=== PATIENT | male | born 1965 | race African-American/Black ===

== ENCOUNTER 2016-11-13 19:53 | Emergency (ER) | payer SELFPAY ==
[~2016-11-13] VITALS: Ht 180.3 cm; Wt 80.4 kg
[2016-11-13 19:53] VITALS: BP 130/85
[~2016-11-13 19:53] MED LIST: ALBU18HF IH; AMLO10TA4 PO; AMOX1TAB11 PO; AMOX1TAB61 PO; BISA-42 PO; CLON1TAB PO; ESOM20CA PO; FLUO20CA16 PO; FLUT12AE IH; HYDR-2666 PO; HYDR-971 PO; HYOS0.1264 PO; LISI40TA PO; MECL25TA3 PO; MEGE400O PO; NAPR500T3 PO; PANT20TA2 PO; PRED20TA PO; TAMS0.4C97 PO; TRAM50TA PO
--- NOTE | 2016-11-13 20:38 | PHYS DOC ---
General Chief Complaint: URINE CATHETER PROBLEM Stated Complaint: CATHETER REMOVAL Time Seen by MD: 19:59 Source: patient, old records Exam Limitations: no limitations Problems: History of Present Illness Initial Comments Pt is 51/M here requesting viera d/c. Pt states he has h/o urinary retention for which he takes flomax. Ran out of flomax recently due to healthcare access issues reportedly, and urinary retention recurred. Pt says he was seen at [facility] a few weeks ago and got med refills and viera placed. States he's been on meds and needs viera removed as he feels retention has resolved. Denies new or changing sx, specifically no urinary discoloration/odor/pain/fever /chills/n/v/abdominal pain/low back pain. ED records obtained/reviewed from [facility]. [facility] records support pt HPI. Pt there 11/12 with urinary retention, had been out of flomax. D/C instructions state viera to be removed after pt on flomax 1-2 days, pt reports he is. Timing/Duration: week Severity/Quality: mild, fullness Location: suprapubic Radiation: none Activities at Onset: other Prior Genitourinary Problems: similar symptoms Modifying Factors: worse with coughing, worse with exercise, worse with movement, improves with urinating Associated Symptoms: denies symptoms (sx resolved with viera last week, pt asymptomatic in ED) Allergies: Coded Allergies: sulfamethoxazole (Unverified Allergy, Intermediate, Rash, 10/08/15) trimethoprim (Unverified Allergy, Intermediate, Rash, 08/09/15) Past Medical History Medical History: other (HIV, COPD, Hepatitis A and B, anemia, depression, HTN, kidney stones, prostatitis, chronic kidney disease, STD) Surgical History: noncontributory (tonsillectomy) Social History Smoker: cigarettes Alcohol: occasionally Drugs: marijuana Review of Systems Constitutional: denies diaphoresis, denies fever Respiratory: denies cough, denies shortness of breath Cardiovascular: denies chest pain, denies syncope Gastrointestinal: denies abdominal pain, denies diarrhea, denies nausea, denies vomiting Genitourinary: see HPIdenies flank pain, denies hematuria Musculoskeletal: denies joint swelling, denies neck pain Psychiatric/Neurological: see HPIdenies paresthesia, denies seizure Physical Exam General Appearance: no apparent distress HEENT: normal ENT inspection Neck: non-tender, supple Cardiovascular/Respiratory: normal peripheral pulses, no respiratory distress Gastrointestinal: non tender, soft Rectal: deferred Male Genitals: other (deferred) Back: normal inspection, no CVA tenderness Extremities: non-tender, normal inspection 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 No other c/o, continue current meds and d/c tobacco/marijuana. Return if needed, f/u your doctor next week. Pt expressed agreement/understanding with treatment plan. Departure Time of Disposition: 20:36 Disposition: 01 HOME, SELF-CARE Diagnosis: urinary retention Condition: STABLE Patient Instructions: Urinary Retention, Acute, Male, [place] Additional Instructions: Continue flomax and your other medications. Contact your doctor in advance to arrange refills to try to avoid running out of meds moving forward. Follow up with your doctor as needed. Return to ED with new or changing symptoms. LI MIDDLETON DO Nov 13, 2016 20:38
== END 2016-11-13 20:30 | disposition home or self-care (01) ==
LOC: ER 19:53
DX: R33.9 Retention of urine, unspecified (principal); I12.9 Hypertensive chronic kidney disease with stage 1 through stage 4 chronic kidney disease, or unspecified chronic kidney disease; N18.9 Chronic kidney disease, unspecified; J44.9 Chronic obstructive pulmonary disease, unspecified; F17.210 Nicotine dependence, cigarettes, uncomplicated; F12.10 Cannabis abuse, uncomplicated; Z46.6 Encounter for fitting and adjustment of urinary device; Z87.442 Personal history of urinary calculi; Z21 Asymptomatic human immunodeficiency virus [HIV] infection status; Z88.1 Allergy status to other antibiotic agents
CPT/HCPCS: 99281

== ENCOUNTER 2016-11-15 10:52 | Emergency (ER) | payer SELFPAY ==
[~2016-11-15] VITALS: Ht 180.3 cm; Wt 80.4 kg
[2016-11-15 10:55] VITALS: BP 141/89
[2016-11-15] MEDS ORDERED: ONDANSETRON ODT 4 MG TAB.RAPDIS PO ONE (11:30)
[2016-11-15] MEDS ORDERED: LORAZEPAM 2 MG/ML VIAL IV ONE (11:30)
[2016-11-15] MEDS ORDERED: FAMOTIDINE 20 MG/2 ML VIAL IVP ONE (11:30)
--- NOTE | 2016-11-15 11:44 | EKG ---
[address] [address] Test Date: 2016-11-15 Test Time: 11:28:01 Pat Name: BRITTA BROWN Department: Room: Gender: M Technology Risk Intern: GWEN : 1965 Requested By: VINICIO CORRIGAN Order Number: [id number] Reading MD: Measurements Intervals [place] Rate: 63 P: 54 HI: 150 QRS: 37 QRSD: 98 T: 44 QT: 420 QTc: 433 Interpretive Statements SINUS RHYTHM NO SPECIFIC ECG ABNORMALITIES RI6.01 Unconfirmed report Compared to ECG 07/29/2016 02:26:31 No significant changes
--- NOTE | 2016-11-15 12:26 | ED.ADGEN ---
Past History Past Medical History: Anemia, Bronchitis, COPD, Depression, HIV, Hypertension, Hepatitis, Kidney Stones, Prostatitis, Renal Disease, STD Past Surgical History: Tonsillectomy Smoking: Cigarettes Alcohol Use: None Drug Use: Marijuana Adult General Chief Complaint Chief Complaint Dizziness HPI HPI Patient is a 51-year-old Afro-[place] male well-known to this facility presents with dizziness, described as vertigo upon standing with nausea. Patient denies loss of balance or falling. Patient has chronic intermittent vertigo for which she takes meclizine. Patient took 1 meclizine prior to ED arrival with partial improvement of symptoms. Denies vomiting, headache blurred vision, focal extremity weakness or loss of sensation. Patient also reports mild dyspepsia and chronic joint and shoulder pain. No other acute symptoms or complaints. Review of Systems Review of Systems Review symptoms as per history of present illness. All other review of symptom are negative. Current Medications Current Medications Current Medications Medications (Trade) Dose Ordered Sig/Raymond Start Time Stop Time Status Last Admin Dose Admin Acetaminophen (Tylenol) 1,000 mg 1X ONCE 11/15/16 12:40 11/15/16 12:41 Famotidine (Pepcid) 20 mg 1X ONCE 11/15/16 11:30 11/15/16 11:31 DC 11/15/16 11:39 20 MG Lorazepam (Ativan) 0.5 mg 1X ONCE 11/15/16 11:30 11/15/16 11:31 DC 11/15/16 11:37 0.5 MG Ondansetron HCl (Zofran Odt) 4 mg 1X ONCE 11/15/16 11:30 11/15/16 11:31 DC 11/15/16 11:40 4 MG Allergies Allergies Allergies Coded Allergies Type Severity Reaction Last Updated Verified sulfamethoxazole Allergy Intermediate Rash 10/08/15 No trimethoprim Allergy Intermediate Rash 08/09/15 No Physical Exam Physical Exam Constitutional: Well developed, well nourished, no acute distress, anxious. HENT: Normocephalic, atraumatic, bilateral external ears normal, oropharynx moist, no oral exudates, nose normal. Eyes: PERRLA, no nystagmus. Neck: Normal range of motion. Cardiovascular:Heart rate regular rhythm, no murmur. Lungs & Thorax: Bilateral breath sounds clear to auscultation. Abdomen: Bowel sounds normal, soft, no tenderness. Skin: Warm, dry, no erythema, no rash. Back: No tenderness, no CVA tenderness. Extremities: No tenderness. Neurologic: Alert and oriented X 3, nerves II through XII grossly intact, no focal extremity weakness or loss of sensation. Psychologic: Affect, anxious. EKG EKG [EKG: Normal sinus rhythm, no acute ST-T wave changes.] Radiology/Procedures Radiology/Procedures ] Impressions: [1. Vertigo 2. Nausea 3. Dyspepsia Course & Med Decision Making Course & Med Decision Making Pertinent Labs and Imaging studies reviewed. (See chart for details) [Symptoms improved with treatment. Patient with multiple chronic medical problems. Will defer further management to patient's PCP.] Final Impression Final Impression [1. Vertigo 2. Nausea 3. Dyspepsia] Problems: Dragon Disclaimer Dragon Disclaimer This electronic medical record was generated, in whole or in part, using a voice recognition dictation system. VINICIO CORRIGAN DO Nov 15, 2016 12:26
[2016-11-15] MEDS ORDERED: ACETAMINOPHEN 500 MG TABLET PO ONE (12:40)
== END 2016-11-15 12:28 | disposition home or self-care (01) ==
LOC: ER 10:52
DX: R42 Dizziness and giddiness (principal); R11.0 Nausea; R10.13 Epigastric pain; J44.9 Chronic obstructive pulmonary disease, unspecified; I10 Essential (primary) hypertension; F17.210 Nicotine dependence, cigarettes, uncomplicated; F12.10 Cannabis abuse, uncomplicated; Z86.2 Personal history of diseases of the blood and blood-forming organs and certain disorders involving the immune mechanism; Z87.442 Personal history of urinary calculi; Z88.1 Allergy status to other antibiotic agents
CPT/HCPCS: 93005; 96374; 96375; 99284; J2060; Q0162; S0028

== ENCOUNTER 2016-12-28 17:13 | Emergency (ER) | payer SELFPAY ==
[~2016-12-28] VITALS: Ht 180.3 cm; Wt 80.4 kg
[2016-12-28] MEDS ORDERED: IV NORMAL SALINE 1,000ML 1,000 ML IV SCH (18:08)
--- NOTE | 2016-12-28 18:13 | PHYS DOC ---
General Chief Complaint: HYPERTENSION Stated Complaint: HIGH BLOOD PRESSURE Time Seen by MD: 18:03 Source: patient Exam Limitations: no limitations Problems: History of Present Illness Initial Comments Pt is 51/M with HIV and extensive history known to the department c/o "high blood pressure." Pt states he's been out of medications for weeks "I can't get an appointment scheduled with Dr Elizondo" and fears his blood pressure may be out of control. He states he's been intermittently dizzy when standing past few days, no CP/sob/ BARBOZA/focal weakness/fever/night sweats/cough. States he needs prozac/flomax refills. Denies substance abuse. Timing/Duration: other Severity: moderate Modifying Factors: improves with medication, worse with movement Associated Symptoms: weakness, other Allergies: Coded Allergies: sulfamethoxazole (Unverified Allergy, Intermediate, Rash, 10/08/15) trimethoprim (Unverified Allergy, Intermediate, Rash, 08/09/15) Past Medical History Medical History: asthma, COPD, hepatitis (A and B), lung disease, other (anemia , bronchitis, depression, HIV, HTN, kidney stones, prostatitis, renal insufficiency, STI, urinary retention) Surgical History: tonsillectomy, other Social History Smoker: cigarettes Alcohol: occasionally Drugs: cocaine, marijuana Review of Systems Constitutional: denies chills, denies fever, malaise EENTM: denies eye pain, denies ear pain, denies ear discharge, denies throat pain, denies throat swelling, denies mouth swelling Respiratory: denies cough, denies shortness of breath, denies wheezing Cardiovascular: denies chest pain, denies palpitations, denies syncope Gastrointestinal: denies abdominal pain, denies diarrhea, denies nausea, denies vomiting Genitourinary: denies dysuria, denies frequency, denies hematuria Musculoskeletal: denies back pain, denies joint swelling, denies neck pain Psychiatric/Neurological: denies headache, denies numbness, denies paresthesia Physical Exam General Appearance: no apparent distress, thin Eyes: bilateral eye EOMI, bilateral eye PERRL, bilateral eye other (marked conjunctival injection) Ear, Nose, Throat: hearing grossly normal, normal ENT inspection Neck: non-tender, supple Respiratory: normal breath sounds, no respiratory distress Cardiovascular: normal peripheral pulses, regular rate, rhythm Gastrointestinal: non tender, soft Back: no CVA tenderness, no vertebral tenderness Extremities: non-tender, normal inspection Neurologic/Psychiatric: cook 3 pastry II-XII nml as tested, no motor/sensory deficits, alert, normal mood/affect, oriented x 3 Skin: normal color, warm/dry Orders, Labs, Meds Chest AP: no acute cardiopulmonary process K+ 3.3 (40meq PO given), CK 417, Urine Drug Screen positive for methamphetamine , cannabinoids I discussed tx plan, pt advised to d/c illicit substance abuse. Pt understands he must obtain refills from PCP in the future. Departure Time of Disposition: 20:58 Disposition: 01 HOME, SELF-CARE Diagnosis: hypokalemia, methamphetamine/THC abuse, elev CK, r Condition: STABLE Patient Instructions: Hypokalemia-Brief, Marijuana Abuse and Chemical Dependency, Medication Refill, Emergency Department, Methamphetamine Abuse, Complications, Smokeless Tobacco Use Additional Instructions: Call and give your doctor plenty of notice for refills so you do not run out. Aggressive hydration with gatorade, water. Eat one banana twice daily until doctor follow up. Discontinue methamphetamine, marijuana, and tobacco abuse. Seek medical assistance if necessary. Rx: flomax, prozac, KCL Follow up with your doctor in 2 days for recheck of symptoms, labs, and further medication refills. Return to ED with new or changing symptoms. LI MIDDLETON DO Dec 28, 2016 18:13
[2016-12-28] MEDS ORDERED: IPRATRPIUM/ALBUTEROL 0.5/2.5MG 3 ML NEBU. NEB ONE ×2 (18:15→19:45)
[2016-12-28 19:07] LABS: BASO # 0.1 x10^3/uL (0.0-0.2); BASO % 2 % (0-3); EOS % 1 % (0-3); HEMATOCRIT 40.2 % (39.0-53.0); HEMOGLOBIN 13.1 g/dL (13.0-17.5); LYMPH # 2.1 x10^3/uL (1.0-4.8); LYMPH % 42 % (24-48); MEAN CORPUSCULAR HEMOGLOBIN 27 pg (25-35); MEAN CORPUSCULAR HGB CONC 33 g/dL (31-37); MEAN CORPUSCULAR VOLUME 83 fL (79-100); MONO # 0.6 x10^3/uL (0.0-1.1); MONO % 12 % (0-9); NEUT # 2.1 x10^3uL (1.8-7.7); NEUT % 44 % (31-73); PLATELET COUNT 255 x10^3/uL (140-400); RED BLOOD COUNT 4.88 x10^6/uL (4.30-5.70); RED CELL DISTRIBUTION WIDTH 17.2 % (11.5-14.5); WHITE BLOOD COUNT 4.9 x10^3/uL (4.0-11.0)
[2016-12-28 19:22] LABS: ALBUMIN 3.7 g/dL (3.4-5.0); ALBUMIN/GLOBULIN RATIO 0.8 (1.0-1.7); CALCIUM 8.8 mg/dL (8.5-10.1); CREATININE 1.3 mg/dL (0.7-1.3); GFR 70.1; POTASSIUM 3.3 mmol/L (3.5-5.1); TOTAL BILIRUBIN 0.4 mg/dL (0.2-1.0); TOTAL PROTEIN 8.4 g/dL (6.4-8.2)
[2016-12-28 19:30] LABS: BACTERIA,URINE 0 /HPF (0-FEW); BILIRUBIN,URINE NEG (NEG); CLARITY,URINE CLEAR; COLOR,URINE AMBER; GLUCOSE,URINE NEG (NEG); NITRITE,URINE NEG (NEG); RBC,URINE OCC /HPF (0-2); SQUAMOUS EPITHELIAL CELL,UR OCC /LPF; UROBILINOGEN,URINE 0.2 mg/dL (0.2 mg/dL)
[2016-12-28 19:31] LABS: HYALINE CASTS, URINE OCC /HPF
[2016-12-28] MEDS ORDERED: methylPREDNISolone SOD SUCC PF 125 MG/2 ML VIAL. IV ONE (19:45)
[2016-12-28 19:57] VITALS: BP 148/79
[2016-12-28] MEDS ORDERED: POTASSIUM CHLORIDE 20 MEQ TABLET.ER. PO ONE (20:30)
[2016-12-28] MEDS ORDERED: ACETAMINOPHEN 325 MG TABLET PO ONE (20:30)
[2016-12-28 20:41] LABS: BARBITURATES NEG (NEG); BENZODIAZEPINES NEG (NEG); CANNABINOIDS POS (NEG); COCAINE NEG (NEG); METHADONE NEG (NEG); OPIATES NEG (NEG); PHENCYCLIDINE NEG (NEG)
[2016-12-28 20:45] LABS: AMPHETAMINE/METHAMPHETAMINE POS (NEG)
[2016-12-28] MEDS ORDERED: TAMS0.4C97 PO (21:04)
[2016-12-28] MEDS ORDERED: POTA10TA10 PO (21:04)
[2016-12-28] MEDS ORDERED: FLUO20CA16 PO (21:04)
--- NOTE | 2016-12-28 23:33 | EKG ---
[address] [address] Test Date: 2016-12-28 Test Time: 17:40:36 Pat Name: BRITTA BROWN Department: Room: Gender: M Clinical Care Leader: GWEN : 1965 Requested By: LI MIDDLETON Order Number: [id number] Reading MD: Jordan Fatima Measurements Intervals [place] Rate: 78 P: 56 CA: 156 QRS: 38 QRSD: 100 T: 50 QT: 416 QTc: 478 Interpretive Statements SINUS RHYTHM PROLONGED QT Electronically Signed On 12-31-2016 10:01:10 CDT by Jordan Fatima
--- NOTE | 2016-12-29 09:02 | RAD ---
Portable chest, 12/28/2016: History: Dizziness, hypertension Comparison is made to a study from 07/29/2016. The heart size and pulmonary vascularity are normal. There is a peripheral density laterally in the right mid chest, also evident on the previous study. This mass has been present on previous studies including the CT study from 08/09/2015 and has shown no definite change. No acute infiltrate is seen. There is no evidence of pleural fluid or pneumothorax. IMPRESSION: 1. Stable right pleural-based mass. 2. No acute cardiopulmonary abnormality is detected.
== END 2016-12-28 21:07 | disposition home or self-care (01) ==
LOC: ER 17:13
DX: E87.6 Hypokalemia (principal); F15.10 Other stimulant abuse, uncomplicated; F19.10 Other psychoactive substance abuse, uncomplicated; R74.8 Abnormal levels of other serum enzymes; R42 Dizziness and giddiness; F17.210 Nicotine dependence, cigarettes, uncomplicated; I10 Essential (primary) hypertension; F12.10 Cannabis abuse, uncomplicated; F14.10 Cocaine abuse, uncomplicated; N28.9 Disorder of kidney and ureter, unspecified; J44.9 Chronic obstructive pulmonary disease, unspecified; F32.9 Major depressive disorder, single episode, unspecified; J45.909 Unspecified asthma, uncomplicated; Z87.442 Personal history of urinary calculi; Z86.2 Personal history of diseases of the blood and blood-forming organs and certain disorders involving the immune mechanism; Z88.1 Allergy status to other antibiotic agents
CPT/HCPCS: 36415; 71010; 80053; 80305; 81001; 82550; 84484; 85027; 93005; 94640; 96361; 96374; 99285; J2930; J7620; 80320; G0480; G0481; J7030

== ENCOUNTER 2017-01-25 11:15 | Emergency (ER) | payer MEDICAID ==
[~2017-01-25] VITALS: Ht 180.3 cm; Wt 80.4 kg
[~2017-01-25 11:15] MED LIST changes: -HYDR-2666 PO; +HYDR-2758 PO; -PANT20TA2 PO; +PANT20TA58 PO; +POTA10TA10 PO
--- NOTE | 2017-01-25 11:19 | PHYS DOC ---
General Chief Complaint: SHOULDER INJURY Stated Complaint: SHOULDER PAIN Time Seen by MD: 11:16 Source: patient, EMS, old records Exam Limitations: no limitations Problems: History of Present Illness Initial Comments Pt is 51/M to ED c/o right shoulder injury. Pt states he fell walking to [employer] injuring his right shoulder. States he has severe pain with right arm movement, no numbness/tingling/weakness/radiating sx. No other injury, pain 06/09. Pt known to ED h/o narcotic seeking and polysubstance abuse. Onset: just prior to arrival Severity: severe Pain/Injury Location: right shoulder Method of Injury: fell Modifying Factors: worse with jarring, worse with movement, improves with rest Allergies: Coded Allergies: sulfamethoxazole (Unverified Allergy, Intermediate, Rash, 10/08/15) trimethoprim (Unverified Allergy, Intermediate, Rash, 08/09/15) Past Medical History Medical History: other (HIV, hepatitis A and B, COPD, asthma, anemia, depression, HTN, kidney stones, prostatitis, renal insufficiency, urinary retension) Surgical History: tonsillectomy, other Social History Smoker: cigarettes Alcohol: occasionally Drugs: cocaine, marijuana, other (methamphetamine) Review of Systems Constitutional: denies chills, denies fever Respiratory: denies cough, denies shortness of breath Cardiovascular: denies chest pain, denies palpitations Gastrointestinal: denies nausea, denies vomiting Musculoskeletal: see HPI Skin: denies change in color, denies lesions, denies rash Psychiatric/Neurological: see HPI Physical Exam General Appearance: WD/WN, no apparent distress HEENT: normal ENT inspection Neck: non-tender, supple Cardiovascular/Respiratory: normal peripheral pulses, no respiratory distress Back: no CVA tenderness, no vertebral tenderness Shoulder: normal inspection, no evidence of injury, normal ROM (diffuse TTP ROM not tested due to pt sx) Neurologic/Tendon: normal sensation, normal motor functions, normal tendon functions, responds to pain, no evidence tendon injury Psychiatric: alert, oriented x 3 Skin: normal color, warm/dry Orders, Labs, Meds UDS +methamphetamine/marijuana. Pt denied recent drug use, poor historian. Drug seeking behavior. No narcotic treatment, see departure. R shoulder: no acute osseous abnormality interp by me Departure Time of Disposition: 12:14 Disposition: 01 HOME, SELF-CARE Diagnosis: methamp/marijuana abuse the [facility] fall, R shoulder pain Condition: STABLE Patient Instructions: Marijuana Abuse and Chemical Dependency, Methamphetamine Abuse, Complications, RICE - Routine Care for Injuries, Wmzr-ml-Boer, Shoulder Pain, Vpvn-dl-Ursp Additional Instructions: Discontinue methamphetamine and marijuana abuse, seek medical assistance if necessary. Stop smoking, seek medical assistance if necessary. RICE, see handout. Wear shoulder sling as needed for symptom control. OTC tylenol and/or ibuprofen as needed for symptom control. Follow up with Dr Caro Brown for recheck and further evaluation/treatment if necessary. Return to ED with new/changing symptoms. LI MIDDLETON DO January 25, 2017 11:19
[2017-01-25 11:20] VITALS: BP 148/79
[2017-01-25] MEDS ORDERED: KETOROLAC 60 MG/2 ML VIAL. IM ONE (11:30)
[2017-01-25 11:55] LABS: BARBITURATES NEG (NEG); BENZODIAZEPINES NEG (NEG); CANNABINOIDS POS (NEG); COCAINE NEG (NEG); METHADONE NEG (NEG); OPIATES NEG (NEG); PHENCYCLIDINE NEG (NEG)
[2017-01-25 11:56] LABS: AMPHETAMINE/METHAMPHETAMINE POS (NEG)
[2017-01-25 12:05] LABS: BILIRUBIN,URINE NEG (NEG); CLARITY,URINE CLEAR; COLOR,URINE YELLOW; GLUCOSE,URINE NEG (NEG); NITRITE,URINE NEG (NEG); UROBILINOGEN,URINE 0.2 mg/dL (0.2 mg/dL)
[2017-01-25 12:06] LABS: BACTERIA,URINE FEW /HPF (0-FEW); HYALINE CASTS, URINE OCC /HPF; SQUAMOUS EPITHELIAL CELL,UR FEW /LPF
--- NOTE | 2017-01-25 12:06 | RAD ---
EXAM: Right shoulder, 3 views. HISTORY: Pain. COMPARISON: None. FINDINGS: Internal and external rotation and transscapular views of the right shoulder are obtained. There is no fracture, dislocation or subluxation. IMPRESSION: No acute osseous finding.
== END 2017-01-25 13:15 | disposition home or self-care (01) ==
LOC: ER 11:15
DX: M25.511 Pain in right shoulder (principal); F15.10 Other stimulant abuse, uncomplicated; F14.10 Cocaine abuse, uncomplicated; F12.10 Cannabis abuse, uncomplicated; F17.210 Nicotine dependence, cigarettes, uncomplicated; J44.9 Chronic obstructive pulmonary disease, unspecified; I12.9 Hypertensive chronic kidney disease with stage 1 through stage 4 chronic kidney disease, or unspecified chronic kidney disease; N28.9 Disorder of kidney and ureter, unspecified; Z86.2 Personal history of diseases of the blood and blood-forming organs and certain disorders involving the immune mechanism; Z21 Asymptomatic human immunodeficiency virus [HIV] infection status; Z87.442 Personal history of urinary calculi; Z88.1 Allergy status to other antibiotic agents; W19.XXXA Unspecified fall, initial encounter; Y93.01 Activity, walking, marching and hiking; Y99.8 Other external cause status; Y92.22 Religious institution as the place of occurrence of the external cause
CPT/HCPCS: 36415; 73030; 80305; 81001; 87086; 96372; 99285; J1885; G0481

== ENCOUNTER 2017-02-21 05:48 | Emergency (ER) | payer MEDICAID, OTHER ==
[~2017-02-21] VITALS: Ht 180.3 cm; Wt 80.4 kg
[2017-02-21 05:48] VITALS: BP 143/97
[2017-02-21] MEDS ORDERED: NAPR500T PO (06:32)
[2017-02-21] MEDS ORDERED: DIAZ5TAB PO (06:32)
--- NOTE | 2017-02-21 06:32 | PHYS DOC ---
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 He's had throbbing pain in his lower back and foot since. He denies any numbness and tingling, denies any rectal incontinence denies any other complaints of weakness just pain with range of motion and walking. Patient states that he was walking down a stair when he lost his balance and slipped approximately 11:30 PM last night. He is no prior injuries to his back or his foot. Although he is HIV-positive his CD4 count is greater than 800 and his viral load is nondetectable. He describes the pain in his back as throbbing and aching worse with range of motion and bending over it is moderate at a 5 of 10 he also describes throbbing pain on the instep is worse with walking and better with rest. It is moderate at this time Review of Systems Review of Systems Constitutional: Denies fever or chills [] Eyes: Denies change in visual acuity, redness, or eye pain [] HENT: Denies nasal congestion or sore throat [] Respiratory: Denies cough or shortness of breath [] Cardiovascular: No additional information not addressed in HPI [] GI: Denies abdominal pain, nausea, vomiting, bloody stools or diarrhea [] : Denies dysuria or hematuria [] Musculoskeletal: He does have a complaint of back pain and right foot pain Integument: Denies rash or skin lesions [] Neurologic: Denies headache, focal weakness or sensory changes [] Endocrine: Denies polyuria or polydipsia [] Allergies Allergies Allergies Coded Allergies Type Severity Reaction Last Updated Verified sulfamethoxazole Allergy Intermediate Rash 10/08/15 No trimethoprim Allergy Intermediate Rash 08/09/15 No Physical Exam Physical Exam Constitutional: Well developed, well nourished, no acute distress, non-toxic appearance. [] Neck: Normal range of motion, no tenderness, supple Cardiovascular:Heart rate regular rhythm, no murmur [] Lungs & Thorax: Bilateral breath sounds clear to auscultation [] Skin: Warm, dry, no erythema, no rash. [] Back: Tender to palpation to the left aspect of the erector spinae muscles. There is minimal if any midline tenderness palpation over L1 L2 L3 the pain is reproducible on exam with localized spasm noted. Extremities: She has tenderness to palpation over the midfoot on the right with no obvious deformity or soft tissue swelling. Patient has normal sensation to light touch and proprioception normal strength to plantar and dorsiflexion patient is able to ambulate with some difficulty Neurologic: Alert and oriented X 3, normal motor function, normal sensory function, no focal deficits noted. [] Psychologic: Affect normal, judgement normal, mood normal. [] EKG EKG [] Radiology/Procedures Radiology/Procedures [] 3 view x-ray of the right foot done 6:11 AM 02/21/2017 demonstrates no signs of fracture there is no soft tissue swelling no cutaneous foreign body or fracture noted. Read By Dr. Ag 3 view lumbar series films demonstrated no occult fracture no compression fracture no malalignment of the spinal column. There is no obvious fracture noted. Read by Dr. Ag. Course & Med Decision Making Course & Med Decision Making Pertinent Labs and Imaging studies reviewed. (See chart for details) reviewed nursing notes vital signs and physical exam as well as x-rays there is notes obvious signs of fracture in the foot or lumbar spine given patient's pain treat symptomatically with a short course of pain medications and anti- inflammatories ask him to follow-up with his primary care doctor. [] Dragon Disclaimer Dragon Disclaimer This chart was dictated in whole or in part using Voice Recognition software in a busy, high-work load, and often noisy Emergency Department environment. It may contain unintended and wholly unrecognized errors or omissions. Departure Departure: Impression: Primary Impression: Back pain Additional Impressions: Sprain of lumbar spine Contusion of foot, left Disposition: 01 HOME, SELF-CARE Condition: IMPROVED Referrals: BETH HAN MD (PCP) Patient Instructions: Back Injury Prevention, Back Pain, Adult, Contusion, Foot Contusion, Low Back Sprain with Rehab[facility] Additional Instructions: Please return for any new or increasing symptoms despite treatment. Although there is no obvious signs of fracture at this time sometimes subtle fractures can be missed early presentation I would advise to to follow with her primary care doctor for repeat evaluation if symptoms continue and are not improved despite treatment. you are encouraged use ice as well as medications prescribed to help with your symptoms. He may also benefit from physical therapy in order to help keep your muscles strong and flexible. Scripts Diazepam (VALIUM) 5 Mg Tablet 5 MG PO TID for 5 Days, #15 TAB Please use one tablet every 8 hours as needed for muscle spasms. Do not drink alcohol or use other narcotics with this medication. Prov: BLANCA AG MD 02/21/17 Naproxen (NAPROSYN) 500 Mg Tablet 1 TAB PO BID, #20 TAB 1 Refill Prov: BLANCA AG MD 02/21/17 Problem Qualifiers BLANCA AG MD Feb 21, 2017 06:32
[2017-02-21] MEDS: KETOROLAC 60 MG/2 ML VIAL. IM ONE (06:45)
--- NOTE | 2017-02-21 08:04 | RAD ---
LUMBAR SPINE 3 VIEWS Clinical Indication: trauma lower back yesterday, severe pain. Comparison: None. Findings: Degenerative endplate spurring in the lumbar spine most apparent at L3/L4 on the left and anteriorly at L5/S1. There is L5/S1 disc space narrowing. Minimal grade 1 anterolisthesis of L3 on L4. Alignment otherwise maintained. There is no evidence of acute fracture or acute malalignment. The visualized pelvic bones are without obvious abnormality. IMPRESSION: No acute compression fracture or malalignment.
--- NOTE | 2017-02-21 08:12 | RAD ---
Right FOOT AP LATERAL OBLIQUE Clinical Indication: trauma to foot yesterday, swelling and pain Comparison: Right foot, 3 views 06/15/2016. Findings: There is no acute fracture or dislocation. The bony alignment is normal. Mineralization is normal. No bony erosion. There is no soft tissue abnormality. Old healed fracture at the base of the fifth metatarsal. IMPRESSION: No acute fracture.
== END 2017-02-21 06:52 | disposition home or self-care (01) ==
LOC: ER 05:48
DX: S33.5XXA Sprain of ligaments of lumbar spine, initial encounter (principal); S90.32XA Contusion of left foot, initial encounter; J44.9 Chronic obstructive pulmonary disease, unspecified; I10 Essential (primary) hypertension; F17.210 Nicotine dependence, cigarettes, uncomplicated; F12.10 Cannabis abuse, uncomplicated; Z21 Asymptomatic human immunodeficiency virus [HIV] infection status; Z88.1 Allergy status to other antibiotic agents; I12.9 Hypertensive chronic kidney disease with stage 1 through stage 4 chronic kidney disease, or unspecified chronic kidney disease; N28.9 Disorder of kidney and ureter, unspecified; Z86.2 Personal history of diseases of the blood and blood-forming organs and certain disorders involving the immune mechanism; Z87.442 Personal history of urinary calculi; W01.0XXA Fall on same level from slipping, tripping and stumbling without subsequent striking against object, initial encounter; Y93.01 Activity, walking, marching and hiking; Y99.8 Other external cause status; Y92.89 Other specified places as the place of occurrence of the external cause
CPT/HCPCS: 72100; 73630; 96372; 99284; J1885